=== PATIENT | male | born 1970 | race African-American/Black ===

== ENCOUNTER → 2016-07-08 | Outpatient (CLI) | payer OTHER ==
[~2016-07-08] MED LIST: BACTRIM DS TABL1 TA2 PO; IBUPROFEN600 MG PO; LORTAB 5/500 TA1 TA2 PO; ULTRAM PO; VICODIN PO
--- NOTE | ~2016-07-08 | CT92 ---
[facility]. [facility] A Service of [facility] RADIOLOGY TEXT RESULTS PATIENT: SERGIO OBREGON [facility] 72 UNIT #: [id number] AGE: [address]: LILLIAN HEART SEX: M ORDER DR: [id number] [facility]. [place], [place] [address] [id number] O MR#: [id number] Acc #: [id number] NAME: SERGIO OBREGON : 1970 SEX: M STUDY DATE/TIME: 07/08/2016 8:25 UNIT: [facility] ROOM: STUDY DESCRIPTION: CT Lower Ext Lt Wo Cont Attending Physician: Shravan Mackay Referring Physician: Shravan Mackay Ordering Physician: Physician Non-Staff Primary Care Physician: Lev Brown M.D. MEDICAL IMAGING REPORT This report is preliminary unless electronic signature is present EXAM CT left hip and pelvis HISTORY 45-year-old male total hip arthroplasty right hip in 2014 then left hip 6 months later. Complains of left hip popping and throbbing x1 year. COMPARISON Bilateral hip films 07/03/[address] exam was performed with one or more of the following radiation dose reduction techniques: automatic exposure control, adjustment of mA and/or kV according to patient size, and iterative reconstruction. FINDINGS Thin section axial images form through the pelvis with multiplanar reconstructed images reviewed at a workstation. Left Hip: The patient is status post left total hip arthroplasty with a noncemented acetabular and femoral component. No evidence of a periprosthetic fracture or loosening. Normal acetabular diversion. Evaluation of the soft tissues demonstrates no abnormal periarticular fluid collections. Hip and thigh musculature appears normal. RIGHT HIP: Patient status post right total hip arthroplasty with a noncemented acetabular and femoral component expected position and alignment. Soft tissues normal. Internal pelvic structures unremarkable. IMPRESSION Status post bilateral total hip arthroplasties with noncemented acetabular and femoral components. No evidence of a periprosthetic fracture or loosening and the surrounding soft tissues unremarkable. No evidence of STS. [facility] A Service [facility] RADIOLOGY TEXT RESULTS PATIENT: SERGIO OBREGON LOCATION: [facility] : 72 UNIT #: [id number] AGE: [address]: LILLIAN HEART SEX: M ORDER DR: asymmetric liner wear. Dictated by... Elizabeth Chowdary M.D. THIS IS AN ELECTRONICALLY VERIFIED REPORT Elizabeth Chowdary M.D. at 07/09/2016 7:29 AM Chema TD: 07/08/2016 13:51 JOB #: [id number] MEDICAL IMAGING REPORT Page 1 of 1 COPY
== END | disposition home or self-care (01) ==
LOC: CCAT 08:05
DX: M25.352 Other instability, left hip (principal); Z96.642 Presence of left artificial hip joint
CPT/HCPCS: 73700

== ENCOUNTER 2016-08-12 23:21 | Emergency (ER) | payer OTHER | END 2016-08-13 02:11 | disposition home or self-care (01) | LOC: CFTX 23:21 | DX: S80.861A Insect bite (nonvenomous), right lower leg, initial encounter (principal); L03.115 Cellulitis of right lower limb; Z98.890 Other specified postprocedural states; Z79.899 Other long term (current) drug therapy; Z88.5 Allergy status to narcotic agent; Z88.8 Allergy status to other drugs, medicaments and biological substances; W57.XXXA Bitten or stung by nonvenomous insect and other nonvenomous arthropods, initial encounter; Y92.009 Unspecified place in unspecified non-institutional (private) residence as the place of occurrence of the external cause | CPT/HCPCS: 90471; 90715; 96372; 99283 ==